=== PATIENT | female | born 1930 | race Caucasian/White ===

== ENCOUNTER → 2019-06-22 | Day surgery (SDC) | payer OTHER, BC ==
--- NOTE | 2019-06-30 11:33 | PATH ---
Cytology Non-Gynecological Report Patient Name: BRITTANI CHAVES [facility]. Rec. #: [id number] /Age/Gender: 1930 (Age: 88) / F Account: [id number] Location: [facility] SURGICAL Taken: 06/22/2019 Received: 06/23/2019 Reported: 06/30/2019 Physicians: Syd Gary M.D. Specimen(s) Received LEFT THYROID FNA Clinical History Left thyroid nodule, 5.73 x 3.79 x 3.53 cm Final Diagnosis THYROID, LEFT, FINE NEEDLE ASPIRATION: SATISFACTORY FOR EVALUATION. B[place] CLASS II: BENIGN. CYTOLOGIC FINDINGS ARE CONSISTENT WITH A BENIGN FOLLICULAR NODULE WITH POST-HEMORRHAGIC CHANGE. SMALL FOLLICULAR CELLS IN A BACKGROUND OF THIN COLLOID AND HEMOSIDERIN-LADEN MACROPHAGES. Electronically Signed Angela Hernández M.D. Gross Description Received are eight direct smears, four of which are air-dried and Diff-Quik stained, and four of which are alcohol fixed and Pap stained. Also received is 20 ml of bloody formalin from which one cellblock is prepared.
== END | disposition home or self-care (01) ==
LOC: JASU-SURG 09:36
PROVIDERS: ATTEND Internal Medicine Endocrinology, Diabetes & Metabolism
PROC: 0GBG3ZX Excision of Left Thyroid Gland Lobe, Percutaneous Approach, Diagnostic (ICD-10-PCS; principal; 2019-06-22)
PROC: BG44ZZZ Ultrasonography of Thyroid Gland (ICD-10-PCS; 2019-06-22)
DX: E04.1 Nontoxic single thyroid nodule (principal)
CPT/HCPCS: 76942; 88173; 88305-TC